=== PATIENT | male | born 1950 | race Caucasian/White ===

== ENCOUNTER 2022-07-25 12:10 | Emergency (ER) | payer MEDICARE, OTHER ==
[~2022-07-25] VITALS: Ht 167.6 cm; Wt 81.6 kg
--- NOTE | 2022-07-25 12:21 | NUR ---
HEADACHE 410 AND LEFT RIBCAGE PAIN 4/,HAD A SYNCOPAL EPISODE 2 DAYS AGO. IN ROOM AIR AND DENIES SOB. RESPIRATION REGULAR AND UNLABORED. WILL CONTINUE TO MONITOR THE PATIENT.
--- NOTE | 2022-07-25 14:07 | NUR ---
Patient discharged to home in stable condition. Written and verbal after care instructions given. Patient verbalizes understanding of instruction.
[2022-07-25 14:08] VITALS: BP 131/95
== END 2022-07-25 14:09 | disposition home or self-care (01) ==
LOC: ER 12:23
DX: S00.83XA Contusion of other part of head, initial encounter (principal); Z60.2 Problems related to living alone; Z91.013 Allergy to seafood; W19.XXXA Unspecified fall, initial encounter; Y93.89 Activity, other specified; Y92.89 Other specified places as the place of occurrence of the external cause; Y99.8 Other external cause status
CPT/HCPCS: 70450-TC; 70486-TC; 71250-TC; 72125-TC

== ENCOUNTER 2023-07-17 14:14 | Emergency (ER) | payer MEDICARE, OTHER ==
[~2023-07-17] VITALS: Ht 167.6 cm; Wt 82.1 kg
[2023-07-17 14:35] VITALS: BP 137/74; TEMP 98.4; O2SAT 100
[2023-07-17] MEDS ORDERED: CEPH500T PO (15:35)
== END 2023-07-17 15:47 | disposition home or self-care (01) ==
LOC: ER 14:14
DX: H72.91 Unspecified perforation of tympanic membrane, right ear (principal); H60.91 Unspecified otitis externa, right ear; Z91.013 Allergy to seafood; Z60.2 Problems related to living alone